=== PATIENT | male | born 1960 | race Caucasian/White ===

== ENCOUNTER → 2016-10-15 | Outpatient (CLI) | payer MEDICARE, OTHER ==
--- NOTE | 2016-10-15 10:44 | ST Modified Barium Swallow ---
Recommendation - Recommendations Recommendations: 1) DIET: recommend mechanical soft ground meats and thin liquids. 2) Aspiration precautions. 3) Small bites and sips- no straws. 4) Alternate bites and sips. 5) Recommend home health speech therapy for dysphagia. Medical Diagnoses - Medical Diagnoses Medical Diagnosis Description & ICD-10 Code(s): dysphagia r13.10 Other Medical Diagnoses/Co-Morbidities: per pt-reflux, asthma, fibromyalgia, CVA x2, dysphagia, neuropathy - ICD-10 Tx Diagnosis Coding (1) Dysphagia, oropharyngeal phase ICD-10 Code(s): R13.12 - DYSPHAGIA, OROPHARYNGEAL PHASE (2) Dysphagia, oral phase ICD-10 Code(s): R13.11 - DYSPHAGIA, ORAL PHASE (3) Dysphagia, pharyngeal phase ICD-10 Code(s): R13.13 - DYSPHAGIA, PHARYNGEAL PHASE ST Modified Barium Swallow - General Date: 10/15/16 Referring Physician: Dr Juares Risks/Precautions: Falls - states uses walker Date of Onset: 10/15/05 Reason for Referral: dysphagia - History History obtained from: Patient, Spouse - pt's -: Medical - Pt referred by GI for evaluation of swallow. Pt states has had MBSS in the past and reports had home health speech therapy. Pt reports onset of swallowing deficits approximately in 2005 however have progressively become worse. Pt's states she cuts pt's meats into small bites because pt has difficulty chewing. Pt reports eating regular and thin diet however. Pt reports coughing and choking with both solids and liquids. Pt states "food goes past esophagus and goes between voicebox" he will then drink followed by a gag resulting in expelling both the solid and liquid contents. Pt reports globus sensation in mid neck and upper chest with PO intake. Pt states most recent PNA was 2 years ago; most recent bronchitis was 1 year ago. PMHx: CVA in 1986 and 2007 pt reports "possible" swallowing deficits after CVAs, reflux, asthma, fibromyalgia, dysphagia, neuropathy. Pt reports using oxygen at home PRN as well as CPAP at night. Medications: olanzapine, lorazepam, buspirone, methylphenidate, nifedipine, cholecalciferol, furosemide, methadone, esomeprazole, docusate, aspirin, ceiecoxib, multivitamin, magnesium oxide, cetirizine, multivitamin, prazosin, amitriptyline, belsomra, gralise, tamsulosin, benztropine mesylate, melatonin, tolterodine. Pt's reports "inhalers" however does not know names. Allergies: ambien, amlodipine, benadryl, lisinopril, nabumetone, vistaril, abilify, geodon, halcion, lunesta, prednisone, seroquel, calamine, cholera vaccine, depakote, nuvigil, remeron, trazodone, zofran, mushrooms. - Functional Status Prior Functional Status: INDEPENDENT: feeding Current Functional Limitations: feeding - Subjective Patient/caregiver goal(s): safe swallow, r/o aspiration Cognitive-Linguistic Function: WNL Speech Intelligibility: WNL Current Nutritional Means: PO Current PO diet: Regular Current symptoms: Coughing, c/o Globus sensation Pain: 4/5 - "all over because of fibromyalgia" - Objective Assessment: Upright, Left Lateral - Food Trials Used Food trials used: Thin liquids, Pureed, Soft solids The patient: Was Able to Self Feed - Oral-Motor Skills Dentition: Partial Velo-pharyngeal function: Unremarkable Laryngeal Function: Volitional Cough, Volitional Swallow - Assessment Oral prep: Moderately Impaired - mild-moderately impaired. Pt unable to fully masticate soft solid (sharri cracker) unable to swallow. Pt requested to spit out. ST provided smaller bite of sharri cracker, pt only able to swallow with puree, had attempt with thin liquids however pt only swallowed thin and no solid bolus. Impaired bolus control, impaired propulsion. Labial closure: Adequate Leakage: None Mastication: Effortful - during soft solid (sharri cracker). WNL on all other consistencies. Lingual Movement: Discoordinated - on sharri cracker. WNL on all other consistencies. Oral stage: Moderately Impaired - mil-moderate - Pharyngeal Stage Initiation of Pharyngeal Stage Reflex: Delayed Reflex Delay Time (Seconds): 2 Decreased laryngeal elevation: Yes - mild Reduced Velopharyngeal Closure: no Reduced pressure generation: Yes - mild reduced tongue-based retraction: Yes - mild Pre-swallow pooling in valleculae: Significant - on thin, puree and soft solid Pre-Swallow pooling in pyriforms: Moderate - on thin, mild-moderate on soft solid Reduced Thyro-Hyoid approximation: Yes - mild Reduced epiglottic excursion: No Reduced pharyngeal peristalsis/contraction: Yes - mild Post-swallow residulas vallecular: Mild - trace on puree and soft solid-cleared with liquid wash Post-Swallow residuals in pyriforms: Mild - on puree and soft solid-cleared with liquid wash Reduced Cricopharyngeal opening: Yes - Fall Risk Assessment Medications/Conditions that increase fall risks include: Antidepressants, sedatives, anti-arrhythmic, diuretic, benzodiazipenes, neuroleptics. BP regulation problems, cardiac problems, balance or gait deficits, neurological problems. Is patient considered at risk for falls: yes Fall Risk Actions Taken: Pt physician notified - Behavioral Observations During evaluation process patient: was pleasant, was cooperative, able to answer questions, provided medical history - Treatment / Educational Needs: Treatment/Education Needs: Treatment consisted of patient education on the role of the Speech Pathologist. Patient's plan of care and golas were communicated as well as scheduling and attendance policies. Recommendations for initial home program were shared. Patient demonstrated understanding and verbalized agreement. Initial home program recommendations: Pt provided with verbal and written education on aspiration PNA, dysphagia, and recommendations from study. - Impression/Summary Laryngeal Penetration: Yes - deep-on large swallows of thin by cup. No penetration observed on small sips of thin by cup., Cleared, during swallow Tracheal Aspiration: yes - micro aspiration observed on large sequential swallows of thin by cup and thin by straw., silent, during swallow Productive cough: No Patient presents with: Oral stage dysphagia, Pharyngeal stage dysph., Oral- Pharyngeal dysph. Risk of Aspiration: Moderate - mild-moderate Risk of nutritional compromise: Moderate - Recommendations NPO: no Solid diet recommendations: Mechanical Soft, Ground Meat Liquid Diet Modification: Thin Strict aspiration precautions: Yes Pt/Family education and followup with MD: Yes Dysphagia therapy with [facility]: yes - pt's wishes to have home health speech therapy Reflux Precautions: Taught to Patient, Taught to Family Recommended techniques: Fully Upright During Meal, Small Bites and Sips, Alternate Bites/Sips Supervision: Distant Information, Precautions and Recommendations: Patient (Written), Patient (Verbal ), Family Member (Written), Family Member (Verbal) - Time Total Time: 30 - Plan of Care Strategies to optimize patient understanding include:: ongoing assessment of educational needs, implementation of educational strategies, and re-education. - - -: Thank you for the opportunity to work with this patient and his/her family. Should you have any questions about this patient's plan or progress, I can be reached at [phone]. Charge G Code? - - -: Yes [facility] Impairment Category - Rationale Based On Rationale Based On: Clin Find., Obj Measures - Swallowing Current G8996: CK 40-59% Impaired Goal G8997: CK 40-59% Impaired Discharge G8998: CK 40-59% Impaired
== END ==
LOC: RAD 07:21
PROVIDERS: ATTEND Specialist
DX: R13.12 Dysphagia, oropharyngeal phase (principal)
CPT/HCPCS: 74230; 92611; G8996; G8997; G8998

== ENCOUNTER 2018-08-31 10:13 | Day surgery (SDC) | payer MEDICARE, OTHER ==
[~2018-08-31 10:13] MED LIST: PROPOFOL INJ 200 MG/20 ML VIAL IV ONE
--- NOTE | 2018-08-31 11:58 | Operative Report ---
Operative Report DATE OF SURGERY: 08/31/18 Operative Report: The risks benefits and alternatives of the procedure explained to the patient in detail and informed consent is obtained.A GIF Olympus video scope was inserted into the patient's mouth and hypopharynx, the esophagus is identified intubated and insufflated, the scope was then advanced through the esophagus stomach and duodenum, retroflexion maneuver is done, the esophagus stomach and first and second portions of the duodenum examined. PREOPERATIVE DIAGNOSIS: Dysphagia POSTOPERATIVE DIAGNOSIS: Schatzki's ring status post breakage. Gastritis status post biopsy rule out Helicobacter pylori OPERATION: EGD with biopsy SURGEON: PARESH MARKS ANESTHESIA: LMAC TISSUE REMOVED OR ALTERED: As noted above. COMPLICATIONS: None. ESTIMATED BLOOD LOSS: None. INTRAOPERATIVE FINDINGS: As noted above. PROCEDURE: Patient tolerated the procedure well. No immediate postprocedure complications are noted. Patient discharged in good condition. Discharge date 08/31/2018. Discharge diet: Regular. Discharge activity: Regular. 2-3-week follow-up to discuss findings. Patient is instructed to call the office or proceed to the emergency room should there be any further problems or questions. Wait on the pathology
[2018-08-31 12:19] VITALS: BP 131/69
== END 2018-08-31 12:15 | disposition home or self-care (01) ==
LOC: END 10:13
PROVIDERS: ATTEND Internal Medicine Gastroenterology
DX: K22.2 Esophageal obstruction (principal); K29.50 Unspecified chronic gastritis without bleeding; K20.9 Esophagitis, unspecified; I25.2 Old myocardial infarction; I11.9 Hypertensive heart disease without heart failure; M19.90 Unspecified osteoarthritis, unspecified site; G47.33 Obstructive sleep apnea (adult) (pediatric); E66.9 Obesity, unspecified; Z68.34 Body mass index [BMI] 34.0-34.9, adult; Z86.73 Personal history of transient ischemic attack (TIA), and cerebral infarction without residual deficits; Z79.82 Long term (current) use of aspirin; Z79.899 Other long term (current) drug therapy; Z79.1 Long term (current) use of non-steroidal anti-inflammatories (NSAID); Z91.81 History of falling
CPT/HCPCS: 43239; 88305 ×2; J2704; 731